=== PATIENT | female | born 1990 | race American Indian/Alaskan Native ===

== ENCOUNTER 2018-06-21 08:41 | Emergency (ER) | payer SELFPAY ==
[2018-06-21 09:10] LABS: Hematocrit 36.1 % (30.3-42.9); Hemoglobin 11.9 gm/dl (10.1-14.3); Mean Corpuscular HGB Conc 33 % (30-34); Mean Corpuscular Hemoglobin 27 pg (28-32); Mean Corpuscular Volume 83 fl (79-97); Platelet Count 325 K/mm3 (140-440); Red Blood Count 4.36 M/mm3 (3.65-5.03); Red Cell Distribution Width 13.9 % (13.2-15.2)
--- NOTE | 2018-06-21 10:10 | Emergency Department Report ---
ED Female HPI - General Chief complaint: Vaginal Bleeding Stated complaint: /HEAVY BLEEDING Time Seen by Provider: 06/21/18 09:36 Source: patient Mode of arrival: Ambulatory Limitations: No Limitations - History of Present Illness Initial comments: Ms. Trinidad is a 28 yo female who is approximately 7-8 week . She has heavy bleeding and cramping. She passed a fist sized clot this morning. 3 children 3 elective abortions 1 miscarriage Complaint: vaginal bleeding -: Gradual, This morning Severity: moderate Quality: cramping Consistency: constant Are you Now?: Yes - Related Data Previous Rx's Medication Instructions Recorded Last Taken Type Sulfamethoxazole/Trimethoprim 1 each PO BID #6 tablet 08/25/16 Unknown Rx [Bactrim DS TAB] Allergies Allergy/AdvReac Type Severity Reaction Status Date / Time shellfish derived Allergy Hives Verified 05/06/14 05:22 ED Review of Systems ROS: Stated complaint: /HEAVY BLEEDING Other details as noted in HPI Comment: All other systems reviewed and negative Constitutional: denies: fever, malaise Respiratory: denies: cough Cardiovascular: denies: chest pain ED Past Medical Hx - Past Medical History Hx Hypertension: No Hx Congestive Heart Failure: No Hx Diabetes: No Hx Deep Vein Thrombosis: No Hx Renal Disease: No Hx Sickle Cell Disease: No Hx Seizures: No Hx Asthma: No Hx COPD: No Hx HIV: No Additional medical history: Anemia - Surgical History Past Surgical History?: Yes Additional Surgical History: lipsuction - Social History Smoking Status: Never Smoker Substance Use Type: None - Medications Home Medications: Home Medications Medication Instructions Recorded Confirmed Last Taken Type Sulfamethoxazole/Trimethoprim 1 each PO BID #6 tablet 08/25/16 Unknown Rx [Bactrim DS TAB] ED Physical Exam - General Limitations: No Limitations General appearance: alert, in no apparent distress - Head Head exam: Present: atraumatic, normocephalic - Eye Eye exam: Present: normal appearance - ENT ENT exam: Present: mucous membranes moist - Neck Neck exam: Present: normal inspection. Absent: tenderness, meningismus - Respiratory Respiratory exam: Present: normal lung sounds bilaterally. Absent: respiratory distress, wheezes, rales, rhonchi - Cardiovascular Cardiovascular Exam: Present: regular rate, normal rhythm, normal heart sounds. Absent: bradycardia, tachycardia, systolic murmur, diastolic murmur, rubs, gallop - GI/Abdominal GI/Abdominal exam: Present: soft, normal bowel sounds. Absent: distended, tenderness, guarding, rebound - Bi-manual exam: Present: other (deferred not indicated ) - Extremities Exam Extremities exam: Present: normal inspection - Back Exam Back exam: Present: normal inspection - Neurological Exam Neurological exam: Present: alert, oriented X3 - Psychiatric Psychiatric exam: Present: normal affect, normal mood - Skin Skin exam: Present: warm, dry, intact, normal color. Absent: rash ED Course Vital Signs 06/21/18 08:50 Temperature 99.3 F Pulse Rate 81 Respiratory 16 Rate Blood Pressure 127/86 O2 Sat by Pulse 98 Oximetry ED Medical Decision Making - Lab Data Result diagrams: 06/21/18 08:57 Laboratory Results - last 24 hr 06/21/18 06/21/18 06/21/18 08:57 08:57 08:57 WBC 3.3 L RBC 4.36 Hgb 11.9 Hct 36.1 MCV 83 MCH 27 L MCHC 33 RDW 13.9 Plt Count 325 HCG, Quant 4568 H Blood Type O POSITIVE - Radiology Data Radiology results: report reviewed, image reviewed interpreted by me: 5w6 d EDC February 15/2019 pole present - Medical Decision Making threatened miscarriage with IUP 5 weeks 6 days, 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 ED Disposition Clinical Impression: Threatened miscarriage Disposition: DC-01 TO HOME OR SELFCARE Is pt being admited?: No Does the pt Need Aspirin: No Condition: Stable Instructions: Threatened Miscarriage (ED) Referrals: PARAM BRIONES MD [Staff Physician] - 3-5 Days Forms: Work/School Release Form(ED)
[2018-06-21 11:01] VITALS: BP 115/83
--- NOTE | 2018-06-21 11:21 | Ultrasound Report ---
FINAL REPORT EXAM: US OB < = 14 WEEKS FETUS HISTORY: Bleeding and cramping TECHNIQUE: Early obstetrical ultrasound was performed. PRIORS: None. FINDINGS: There is a gestational sac in the uterus. The uterus measures 9.9 x 5.8 x 7.0 cm. There is a very tiny intrauterine gestational sac. A small yolk sac evident. I cannot confirm visualization of pole or cardiac activity, possibly too early. Gestational sac size roughly corresponds to age of 5 weeks 6 days and HEAVEN of 02/15/2019. No abnormal adnexal mass seen. No free fluid identified. IMPRESSION: There is a very small intrauterine gestational sac with yolk sac. I cannot confirm a pole or cardiac activity, possibly too early. A short-term follow-up can be obtained to confirm or exclude viability.
--- NOTE | 2018-06-21 11:24 | Ultrasound Report ---
FINAL REPORT EXAM: US OB TRANSVAGINAL HISTORY: Bleeding, cramping approx 8 weeks per pt. TECHNIQUE: Early obstetrical ultrasound was performed. Transvaginal study performed in conjunction with a transabdominal exam. PRIORS: None. FINDINGS: There is an intrauterine gestational sac with a small yolk sac. Transvaginal images demonstrate a questionable pole although no cardiac activity seen with certainty. The crown rump length measurement on transvaginal scanning corresponds to a gestational age of 5 weeks 5 days and HEAVEN of 02/16/2019. No abnormal adnexal mass seen. There no free fluid. IMPRESSION: There is an intrauterine . I cannot confirm cardiac activity. demise is suspected. As precaution, a short-term follow-up recommended to confirm or exclude viability.
== END 2018-06-21 11:00 | disposition home or self-care (01) ==
LOC: ED 08:41
DX: O20.0 Threatened abortion (principal); Z3A.01 Less than 8 weeks gestation of pregnancy; Z91.013 Allergy to seafood; Z86.2 Personal history of diseases of the blood and blood-forming organs and certain disorders involving the immune mechanism
CPT/HCPCS: 36415; 76801; 76817; 84702; 85027; 86900; 86901

== ENCOUNTER 2020-06-24 15:56 | Emergency (ER) | payer MEDICAID ==
[2020-06-24 17:50] LABS: Basophils % (Auto) 0.5 % (0.0-1.8); Eosinophils % (Auto) 0.3 % (0.0-4.3); Hematocrit 33.7 % (30.3-42.9); Hemoglobin 11.8 gm/dl (10.1-14.3); Lymphocytes # (Auto) 1.5 K/mm3 (1.2-5.4); Lymphocytes % (Auto) 25.4 % (13.4-35.0); Mean Corpuscular HGB Conc 35 % (30-34); Mean Corpuscular Volume 87 fl (79-97); Monocytes # (Auto) 0.4 K/mm3 (0.0-0.8); Monocytes % (Auto) 6.6 % (0.0-7.3); Platelet Count 254 K/mm3 (140-440); Red Blood Count 3.89 M/mm3 (3.65-5.03); Red Cell Distribution Width 13.3 % (13.2-15.2)
[2020-06-24 17:52] LABS: Bilirubin,Urine NEG (Negative); Blood,Urine LG (Negative); Color,Urine Yellow (Yellow); Hyaline Casts,Urine 2 /LPF; Mucus,Urine 3+ /HPF; Urobilinogen,Urine < 2.0 mg/dL (<2.0)
[2020-06-24 17:53] LABS: RBC,Urine > 182.0 /HPF (0.0-6.0)
[2020-06-24 18:01] LABS: BUN/Creatinine Ratio 16; Blood Urea Nitrogen 13 mg/dL (7-17); Calcium 9.7 mg/dL (8.4-10.2); Hemolysis Index 6
--- NOTE | 2020-06-24 19:32 | XRay Report ---
CHEST PA AND LATERAL VIEWS INDICATION: wheeze. COMPARISON: None FINDINGS: Support devices: None Heart: Normal Lungs/Pleura: No acute pulmonary or pleural findings. IMPRESSION: 1. No acute disease. Signer Name: Santiago Rolon MD Signed: 06/24/2020 7:27 PM Workstation Name: [id number]
[2020-06-24] MEDS ORDERED: diphenhydrAMINE 50 MG/ML VIAL IV STA (19:48)
[2020-06-24] MEDS ORDERED: ONDANSETRON 4 MG/2 ML INJ IV STA (19:48)
[2020-06-24] MEDS ORDERED: METOCLOPRAMIDE 10 MG/2 ML INJ IV STA (19:48)
[2020-06-24] MEDS ORDERED: KETOROLAC 30 MG/1 ML INJ IV STA (19:48)
[2020-06-24] MEDS ORDERED: SODIUM CHLORIDE 0.9% 1000 ML 1,000 ML IV ONE (19:48)
--- NOTE | 2020-06-24 19:54 | Emergency Department Report ---
ED Female HPI - General Chief complaint: Abdominal Pain Stated complaint: POST N/V/SOB Time Seen by Provider: 06/24/20 19:40 Source: patient Mode of arrival: Ambulatory Limitations: No Limitations - History of Present Illness Initial comments: 30 y/o female 2 days [place] presents to ED c/o of N/V with vague abdomominal pain since completion of the procedure. Abd pain is crampy and random. MD Complaint: vaginal bleeding, pelvic pain Radiation: non-radiating Severity: mild Improves with: none Worsens with: none Are you Now?: No Associated Symptoms: vaginal bleeding. denies: vaginal discharge, loss of appetite, hematuria - Related Data Previous Rx's Medication Instructions Recorded Last Taken Type Sulfamethoxazole/Trimethoprim 1 each PO BID #6 tablet 08/25/16 Unknown Rx [Bactrim DS TAB] Ketorolac [Toradol] 10 mg PO Q6H PRN #10 tablet 06/24/20 Unknown Rx Allergies Allergy/AdvReac Type Severity Reaction Status Date / Time shellfish derived Allergy Hives Verified 05/06/14 05:22 ED Review of Systems ROS: Stated complaint: POST N/V/SOB Other details as noted in HPI Comment: All other systems reviewed and negative ED Past Medical Hx - Past Medical History Previous Medical History?: Yes Hx Hypertension: No Hx Congestive Heart Failure: No Hx Diabetes: No Hx Deep Vein Thrombosis: No Hx Renal Disease: No Hx Sickle Cell Disease: No Hx Seizures: No Hx Asthma: No Hx COPD: No Hx HIV: No Additional medical history: Anemia - Surgical History Additional Surgical History: lipsuction/ X2 - Social History Smoking Status: Never Smoker Substance Use Type: None - Medications Home Medications: Home Medications Medication Instructions Recorded Confirmed Last Taken Type Sulfamethoxazole/Trimethoprim 1 each PO BID #6 tablet 08/25/16 Unknown Rx [Bactrim DS TAB] Ketorolac [Toradol] 10 mg PO Q6H PRN #10 tablet 06/24/20 Unknown Rx ED Physical Exam - General Limitations: No Limitations General appearance: alert, in no apparent distress - Head Head exam: Present: atraumatic, normocephalic - Eye Eye exam: Present: normal appearance, PERRL, EOMI. Absent: scleral icterus, conjunctival injection Pupils: Present: normal accommodation - ENT ENT exam: Present: mucous membranes moist - Neck Neck exam: Present: normal inspection - Respiratory Respiratory exam: Present: normal lung sounds bilaterally. Absent: respiratory distress - Cardiovascular Cardiovascular Exam: Present: regular rate, normal rhythm. Absent: systolic murmur, diastolic murmur, rubs, gallop - GI/Abdominal GI/Abdominal exam: Present: soft, normal bowel sounds - Extremities Exam Extremities exam: Present: normal inspection - Back Exam Back exam: Present: normal inspection - Neurological Exam Neurological exam: Present: alert, oriented X3 - Psychiatric Psychiatric exam: Present: normal affect, normal mood - Skin Skin exam: Present: warm, dry, intact, normal color. Absent: rash ED Course Vital Signs 06/24/20 16:40 Temperature 99.3 F Pulse Rate 72 Respiratory 18 Rate Blood Pressure 127/75 O2 Sat by Pulse 100 Oximetry ED Medical Decision Making - Lab Data Result diagrams: 06/24/20 17:27 06/24/20 17:27 - Medical Decision Making 30-year-old F Greek female status post surgical presents with mild bleeding and and vague cramping more concerned of her vomiting nausea and dehydration. She was seen at [facility] on last night but they were unable to get IV started to start her IV fluids so states this was primary reason for her coming to the emergency department today. Patient states that her pain is now is much of a concern as it has not worsened since the onset and from the the bleeding and pelvic pain she is improving. She is unable to eat due to the nausea and would like treatment. She does have a prescription for Zofran which she has not yet taken and has been she has been advised to start that medication. Critical care attestation.: If time is entered above; I have spent that time in minutes in the direct care of this critically ill patient, excluding procedure time. ED Disposition Clinical Impression: Postabortion complication, Nausea and vomiting Disposition: DC-01 TO HOME OR SELFCARE Is pt being admited?: No Does the pt Need Aspirin: No Condition: Stable Instructions: Abdominal Pain (ED) Prescriptions: Ketorolac [Toradol] 10 mg PO Q6H PRN #10 tablet PRN Reason: Pain Referrals: PRIMARY CARE, [Referring] - 2-3 Days (Please f/u with the [facility] where you received your procedure )
[2020-06-25 00:26] VITALS: BP 127/68
== END 2020-06-25 00:27 | disposition home or self-care (01) ==
LOC: ED 15:56
DX: O03.6 Delayed or excessive hemorrhage following complete or unspecified spontaneous abortion (principal); O21.8 Other vomiting complicating pregnancy; Z98.890 Other specified postprocedural states; Z79.899 Other long term (current) drug therapy; Z91.013 Allergy to seafood
CPT/HCPCS: 36415; 71046; 80048; 81001; 83690; 84702; 85025; 87086; 96361; 96374; 96375; 99284; J1200; J1885; J2405; J2765; J7030